=== PATIENT | male | born 1995 | race Caucasian/White ===

== ENCOUNTER 2018-10-21 20:27 | Emergency (ER) | payer BC ==
--- NOTE | 2018-10-21 20:48 | ERPHSYRPT ---
- History of Present Illness Time Seen by Provider: 10/21/18 20:36 Source: patient Exam Limitations: no limitations Physician History: Lifting firewood - about 50 pounds and twisted to the right - felt a pop in the right side of back. In pain and spasm since. Method of Injury: lifting, twisted Back Pain Location: lumbar spine Severity of Pain-Max: severe Severity of Pain-Current: severe Modifying Factors: Improves With: immobilization (laying still in position of comfort gives some relief = moderate pain) Previous symptoms: no prior history Allergies/Adverse Reactions: prednisone Allergy (Verified 07/15/12 23:25) Hx Tetanus, Diphtheria Vaccination/Date Given: No Hx Influenza Vaccination/Date Given: No Hx Pneumococcal Vaccination/Date Given: No - Review of Systems Constitutional: No Symptoms Musculoskeletal: Back Pain All Other Systems: Reviewed and Negative - Past Medical History Pertinent Past Medical History: Yes Neurological History: No Pertinent History Respiratory History: Asthma Musculoskeletal History: No Pertinent History - Past Surgical History Past Surgical History: Yes Other Surgical History: mother states sinus surgery history - Social History Smoking Status: Never smoker Exposure to second hand smoke: Yes Drug Use: none Patient Lives Alone: No (lives with parents) - Nursing Vital Signs Nursing Vital Signs: Initial Vital Signs Temperature 98.0 F 10/21/18 20:32 Pulse Rate 108 H 10/21/18 20:32 Respiratory Rate 17 10/21/18 20:32 Blood Pressure 163/108 10/21/18 20:32 O2 Sat by Pulse Oximetry 100 10/21/18 20:32 Pain Scale Pain Intensity [] 7 Pain Intensity [] 7 Pain Intensity 7 - Physical Exam General Appearance: moderate distress (while in position of comfort not moving) , alert Neck Exam: normal inspection, non-tender, supple Respiratory Exam: normal breath sounds, chest tenderness Cardiovascular Exam: regular rate/rhythm, normal heart sounds Back Exam: muscle spasm (lower lumbar region) Extremity Exam: normal inspection, normal range of motion Neurologic Exam: alert, oriented x 3, cooperative, normal mood/affect Skin Exam: normal color, warm, dry SpO2 Interpretation: normal SpO2: 100 O2 Delivery: Room Air - Course Nursing assessment & vital signs reviewed: Yes - Radiology Exams L-Spine X-ray Interpretation: Interpreted by me, Negative Ordered Tests: Active Orders 24 hr Category Date Time Status LSPINE COMPLETE W/FLEX AND EXT Stat Exams 10/21/18 20:48 Taken Medication Summary Discontinued Medications Generic Name Dose Route Start Last Admin Trade Name Dionicioq PRN Reason Stop Dose Admin Methocarbamol 1,000 mg 10/21/18 21:54 10/21/18 22:23 Robaxin 500 Mg PO 10/21/18 21:55 1,000 mg QID PRN STA Administration Tramadol HCl 100 mg 10/21/18 21:53 10/21/18 22:23 Ultram 50 Mg PO 10/21/18 21:54 100 mg STAT ONE Administration Tramadol HCl Confirm 10/21/18 22:05 Ultram 50 Mg Administered 10/21/18 22:06 Dose 100 mg .ROUTE .STK-MED ONE - Departure Departure Disposition: Home Clinical Impression: Low back strain Qualifiers: Encounter type: initial encounter Qualified Code(s): S39.012A - Strain of muscle, fascia and tendon of lower back, initial encounter Condition: Stable Critical Care Time: No Referrals: KRYSTYNA LEAL NP [Primary Care Provider] - Instructions: Lumbar Muscle Strain (DC) Additional Instructions: Take pain and spasm medications; rest for two days. Follow up with primary care or orthopedics if not better. Prescriptions: Methocarbamol 500 mg [Robaxin 500 MG] 500 mg PO Q6H PRN PRN #20 tablet PRN Reason: Pain Tramadol HCl 50 mg [Ultram 50 mg] 50 mg PO Q6H PRN PRN #14 tablet PRN Reason: Pain
[2018-10-21] MEDS ORDERED: ULTRAM 50 MG PO ONE (21:53)
[2018-10-21] MEDS ORDERED: Robaxin 500 MG PO STA (21:54)
[2018-10-21] MEDS ORDERED: ULTRAM 50 MG ONE (22:05)
[2018-10-21 22:38] VITALS: BP 127/89; PULSE 80
[2018-10-22 05:52] VITALS: O2SAT 100
--- NOTE | 2018-10-23 09:26 | XRAY ---
Exam: 7 views of the lumbar spine including lateral extension and flexion views from 10/21/2018. Comparison: 5 views of the lumbar spine from 06/27/2016. Indication: 23-year-old male with low back pain/right hip pain since lifting injury yesterday, history of bulging disc in lumbar spine, unsure which level. Findings: AP, lateral neutral, both oblique images, and a coned-down lateral image of the lumbar spine were obtained. In addition, lateral flexion and lateral extension views of the lumbar spine were obtained. There are 5 [id number] lumbar-type vertebra. On the AP image, there is very slight convexity of the upper lumbar spine toward the right centered at L2-L3. This could be positional. The sacroiliac joints appear unremarkable. The pedicles are intact. On the neutral images, I see no acute fracture, spondylolisthesis, or spondylolysis. There is questionable slight narrowing of the L5-S1 interspace as compared to the other lumbar interspaces representing no change. The lateral flexion and extension views reveal no significant AP subluxation to suggest lumbar instability. Impression: 1. Equivocal evidence of slight relative narrowing of the L5-S1 interspace height as compared to the other lumbar interspaces. This is unchanged from 06/27/2016. 2. The remainder of the lumbar spine radiographs are essentially normal. The flexion and extension lateral views reveal no AP subluxation to suggest lumbar instability.
== END 2018-10-21 22:47 | disposition home or self-care (01) ==
LOC: ED 20:27
DX: S39.012A Strain of muscle, fascia and tendon of lower back, initial encounter (principal); X50.0XXA Overexertion from strenuous movement or load, initial encounter
CPT/HCPCS: 72114; 99283; A9270-GY

== ENCOUNTER 2023-07-22 19:18 | Emergency (ER) | payer BC ==
[2023-07-22 19:37] VITALS: TEMP 98.1
[2023-07-22] MEDS ORDERED: Bicillin L-A 1.2 Mu/2ML SYRINGE IM ONE (19:44)
[2023-07-22] MEDS ORDERED: solu-MEDROL ONE (19:44)
[2023-07-22] MEDS ORDERED: Sterile H2O 10 ml IJ ONE (19:45)
[2023-07-22] MEDS ORDERED: Depo-Medrol 80 MG/ML ONE ×2 (19:47→19:51)
--- NOTE | 2023-07-22 19:47 | ERPHSYRPT ---
- History of Present Illness Time Seen by Provider: 07/22/23 19:40 Source: patient Exam Limitations: no limitations Patient Subjective Stated Complaint: sore throat x 5 days Triage Nursing Assessment: pt to ED c/o sore throat x5 days. rates 7/10 pain, progressively worsening since onset. has been taking ibuprofen that did help at first but not helping pain now. pain radiating to jaw. aggrevated by swallowing and eating. Physician History: The patient presents with a sore throat and bilateral ear pain that began on . He denies known exposure to strep throat. He describes a mild cough with a tickling sensation but denies productive cough or difficulty breathing. He also reports pain in his jaws and teeth. He has a history of allergies but does not currently take any allergy medications such as Flonase. He has a known allergy to prednisone, which causes hives. He has tolerated Medrol packs in the past without issue. Timing/Duration: day(s) (3) Cough Quality/Degree: mild, dry cough Possible Cause: no prior episodes Modifying Factors: Improves With: nothing Associated Symptoms: chills, cough, earache, facial pain, nasal drainage, sore throat, No fever, No chest pain/soreness, No headache, No muscle aches, No nasal congestion, No shortness of breath, No wheezing Allergies/Adverse Reactions: prednisone Allergy (Verified 07/15/12 23:25) Hx Tetanus, Diphtheria Vaccination/Date Given: Yes Hx Influenza Vaccination/Date Given: No Hx Pneumococcal Vaccination/Date Given: No Travel Risk - International Travel Have you traveled outside of the country in past 3 weeks: No - Emerging Infectious Disease Are you exhibiting symptoms associated with any current EIDs: Yes Symptoms: Cough: New Onset, Headaches/Body Aches/ - Review of Systems All Other Systems: Reviewed and Negative - Past Medical History Pertinent Past Medical History: Yes Neurological History: No Pertinent History ENT History: No Pertinent History Cardiac History: No Pertinent History Respiratory History: Asthma Endocrine Medical History: No Pertinent History Musculoskeletal History: No Pertinent History GI Medical History: No Pertinent History History: No Pertinent History Psycho-Social History: No Pertinent History Male Reproductive Disorders: No Pertinent History Other Medical History: 2 bulging disks - Past Surgical History Past Surgical History: Yes Neuro Surgical History: No Pertinent History Cardiac: No Pertinent History Respiratory: No Pertinent History Gastrointestinal: No Pertinent History Genitourinary: No Pertinent History Musculoskeletal: No Pertinent History Male Surgical History: No Pertinent History Other Surgical History: mother states sinus surgery history - Social History Smoking Status: Never smoker Exposure to second hand smoke: Yes Drug Use: none Patient Lives Alone: No (lives with parents) - Social Determinants of Health Will the patient participate in the screening: Yes Do you worry about a steady place to live?: No Do you have any problems with any of the following?: No known problems In the past 12 months,have you had to go without utilities?: No Transportation Issues: No Has anyone in your support network made you feel unsafe?: No Have you or anyone in your house had to go without enough: No - Nursing Vital Signs Nursing Vital Signs: Initial Vital Signs Temperature 98.1 F 07/22/23 19:21 Pain Scale Pain Intensity 7 - Physical Exam General Appearance: no apparent distress Ears, Nose, Throat Exam: TM abnormal (R) (bulging), TM abnormal (L) (bulging), pharyngeal erythema, tonsillar exudate Neck Exam: full range of motion, lymphadenopathy Respiratory Exam: normal breath sounds, lungs clear, airway intact, No chest tenderness, No respiratory distress Cardiovascular Exam: regular rate/rhythm, normal heart sounds SpO2 Interpretation: normal O2 Delivery: Room Air - Course Nursing assessment & vital signs reviewed: Yes Ordered Tests: Medication Summary Discontinued Medications Generic Name Dose Route Start Last Admin Trade Name Freq PRN Reason Stop Dose Admin Methylprednisolone Acetate 40 mg 07/22/23 19:45 07/22/23 19:53 Methylprednisolone Acetate 40* 40 Mg/Ml Vial IM 07/22/23 19:46 Not Given ONCE ONE Methylprednisolone Acetate Confirm 07/22/23 19:47 Methylprednisolone Acetate 80 Mg/Ml Vial Administered 07/22/23 19:48 Dose 80 mg .ROUTE .STK-MED ONE Methylprednisolone Acetate 40 mg 07/22/23 19:52 07/22/23 19:53 Methylprednisolone Acetate 80 Mg/Ml Vial IM 07/22/23 19:53 40 mg STAT ONE Administration Methylprednisolone Acetate Confirm 07/22/23 19:51 Methylprednisolone Acetate 80 Mg/Ml Vial Administered 07/22/23 19:52 Dose 80 mg .ROUTE .STK-MED ONE Methylprednisolone Sodium Succinate Confirm 07/22/23 19:44 Methylprednisolone Sod Suc 40m 40 Mg/Ml Vial Administered 07/22/23 19:45 Dose 40 mg .ROUTE .STK-MED ONE Penicillin G Benzathine 1.2 mu 07/22/23 19:37 07/22/23 19:53 Penicillin G Benzathine 1.2 Mu/2 Ml Syringe IM 07/22/23 19:38 1.2 mu STAT ONE Administration Penicillin G Benzathine Confirm 07/22/23 19:44 Penicillin G Benzathine 1.2 Mu/2 Ml Syringe Administered 07/22/23 19:45 Dose 1.2 mu IM .STK-MED ONE Sterile Water Confirm 07/22/23 19:45 Water For Injection,Sterile 10 Ml Vial Administered 07/22/23 19:46 Dose 10 ml IJ .STK-MED ONE - Progress Progress Note: Patient swab for flu, COVID, RSV as well as strep with rapid and culture. Patient Centor criteria is elevated so I will empirically treat with antibiotics at this time. Will give a one-time dose of Bicillin and 40 mg of Depo-Medrol IM. Patient does have a history of allergy to prednisone causing hives, but reports he has taken Medrol Dosepaks without difficulty in the past. 07/22/23 19:42 07/22/23 20:14 Patient tolerated Bicillin and Depo-Medrol after 15 minutes. Will d/c home. Blood Culture(s) Obtained: No Antibiotics given: Yes Counseled pt/family regarding: lab results, diagnosis Medical Desision Making - Diagnostic Testing Diagnostic test were ordered, analyzed, and reviewed by me: Yes Radiological Interpretation: Interpreted by me - Risk of complications The pt has a mod risk of morbidity or mortality based on: Need for prescription drug management - Departure Departure Disposition: Home Clinical Impression: Pharyngitis, Tonsillar exudate, Allergic rhinitis Condition: Good Critical Care Time: No Referrals: KRYSTYNA LEAL NP [Primary Care Provider] - Follow up/PCP as directed Instructions: Strep Throat (DC) Prescriptions: Fluticasone Propionate [Flonase Nasal] 16 gm NS DAILY #1 amp Methylprednisolone Packet [Medrol Dosepack] 4 mg PO DAILY 5 Days #1 packet
[2023-07-22] MEDS: Depo-Medrol 80 MG/ML IM ONE (19:53)
[2023-07-22] MEDS: Depo-Medrol 40 MG/ML IM ONE (19:53)
[2023-07-22] MEDS: Bicillin L-A 1.2 Mu/2ML SYRINGE IM ONE (19:53)
[2023-07-22 20:05] LABS: Group A Strep NOT DETECTED (NEGATIVE)
[2023-07-22 20:16] LABS: INFLUENZA A NEGATIVE (NEGATIVE); INFLUENZA B NEGATIVE (NEGATIVE); RESPIRATORY SYNCTIAL VIRUS NEGATIVE (NEGATIVE); SARS-CoV-2 Xpert Express NEGATIVE (NEGATIVE)
== END 2023-07-22 20:16 | disposition home or self-care (01) ==
LOC: ED 19:18
DX: J02.9 Acute pharyngitis, unspecified (principal); J03.90 Acute tonsillitis, unspecified; J30.9 Allergic rhinitis, unspecified; H92.03 Otalgia, bilateral; R05.9 Cough, unspecified; Z79.52 Long term (current) use of systemic steroids
CPT/HCPCS: 0241U; 87651; 96372; 99283; J0561; J1010; J2919